=== PATIENT | male | born 1975 | race Caucasian/White ===

== ENCOUNTER 2023-01-29 20:08 | Inpatient (IN) | payer BC ==
[2023-01-29] MEDS ORDERED: HYDROMORPHONE HCL 1 MG/ML INJ ONE (22:02)
[2023-01-29] MEDS ORDERED: NA CHLORIDE 0.9% 1,000 ML ONE (22:03)
[2023-01-29] MEDS ORDERED: ACETAMINOPHEN 500 MG TAB ONE (22:38)
[2023-01-29 22:44] LABS: Absolute Lymphocytes (CBC) 1.3 K/uL (0.7-4.9); Hematocrit 40.1 % (39.6-49.0); Lymphocytes % 13.4 % (15.3-44.8); MCV 81.1 fL (80-100); MPV 8.4 fL (7.6-11.3); RBC Red Blood Cell Count 4.95 M/uL (4.33-5.43)
[2023-01-29 22:47] LABS: Albumin 3.5 g/dL (3.4-5.0); Bilirubin Total 0.5 mg/dL (0.2-1.0); Potassium 3.9 mEq/L (3.5-5.1); Protein, Total 8.3 g/dL (6.4-8.2)
--- NOTE | 2023-01-30 00:32 | EDPHYS ---
Physician Documentation [facility] Name: Alexandre Mcdermott Age: 47 yrs Sex: Male : 1975 Arrival Date: 01/29/2023 Time: 20:08 Bed 15 Private MD: ED Physician Ford Mann HPI: 01/29 21:40 This 47 yrs old Male presents to ER via Ambulatory with complaints of Abdominal Pain, cp Nausea, Dizziness, PT HAD ABD IMAGING HERE TODAY-REPORT ATTACHED. 21:40 The patient presents with abdominal pain in the lower abdomen. cp 21:40 Onset: The symptoms/episode began/occurred 3 day(s) ago. cp 21:40 The symptoms do not radiate. Associated signs and symptoms: Pertinent positives: blood cp in stools, constipation, fever, Pertinent negatives: chest pain, diarrhea, testicular pain, vomiting. The symptoms are described as constant. Severity of pain: in the emergency department the pain is actually worse moderately. 21:40 Patient reports having xray abdomen done today but unsure of results. cp Historical: - Allergies: 20:57 No Known Allergies; nj - Home Meds: 20:57 Metamucil Smooth Texture Oral [Active]; [facility] - PMHx: 20:57 None; [facility] - PSHx: 20:57 Back surgery; Appendectomy; nj - Immunization history:: Client reports receiving the 2nd dose of the Covid vaccine. - Social history:: Smoking status: Patient reports the use of cigarette tobacco products, smokes one-half pack cigarettes per day. ROS: 21:45 Constitutional: Positive for fever, Negative for poor PO intake. cp 21:45 Eyes: Negative for injury, pain, redness, and discharge. cp 21:45 ENT: Negative for drainage from ear(s), ear pain, sore throat, difficulty swallowing, difficulty handling secretions. 21:45 Cardiovascular: Negative for chest pain, edema, palpitations. 21:45 Respiratory: Negative for cough, shortness of breath, wheezing. 21:45 Abdomen/GI: Positive for abdominal pain, constipation, rectal bleeding, dark colored stools, Negative for diarrhea. 21:45 Back: Negative for pain at rest, pain with movement. 21:45 : Negative for urinary symptoms, testicular pain 21:45 Neuro: Negative for altered mental status, dizziness, headache, weakness. 21:45 All other systems are negative. Exam: 21:50 Constitutional: The patient appears in no acute distress, alert, awake, cp non-diaphoretic, non-toxic, well developed, well nourished, febrile, uncomfortable. 21:50 Head/Face: Normocephalic, atraumatic. cp 21:50 Eyes: Periorbital structures: appear normal, Conjunctiva: normal, Sclera: no appreciated abnormality, Lids and lashes: appear normal, bilaterally. 21:50 ENT: External ear(s): are unremarkable, Nose: is normal, Mouth: Lips: moist, Oral mucosa: pink and intact, moist, Posterior pharynx: is normal, airway is patent, no erythema, no exudate. 21:50 Neck: ROM/movement: is normal, is supple, without pain, no range of motions limitations, no nuchal rigidity. 21:50 Chest/axilla: Inspection: normal. 21:50 Cardiovascular: Rate: tachycardic, Rhythm: regular, Edema: is not appreciated, JVD: is not appreciated. 21:50 Respiratory: the patient does not display signs of respiratory distress, Respirations: normal, no use of accessory muscles, no retractions, labored breathing, is not present, Breath sounds: are clear throughout, no decreased breath sounds, no stridor, no wheezing. 21:50 Abdomen/GI: Inspection: abdomen appears normal, Bowel sounds: active, all quadrants, Palpation: soft, in all quadrants, moderate abdominal tenderness, in the suprapubic area, right lower quadrant and left lower quadrant, rebound tenderness, is not appreciated, voluntary guarding, is elicited in the suprapubic area, right lower quadrant and left lower quadrant. 21:50 Back: pain, that is mild, of the low back area, ROM is normal. 21:50 Skin: no rash present. 21:50 Neuro: Orientation: to person, place \T\ time. Mentation: is normal, Motor: moves all fours, strength is normal, Sensation: is normal. Vital Signs: 20:53 BP 173 / 98; Pulse 117; Resp 18; Temp 101.1(O); Pulse Ox 98% ; Weight 106.59 kg; Height nj1 5 ft. 9 in. ; Pain 6/10; 22:08 BP 175 / 89; Pulse 104; Temp 100.4; Pulse Ox 95% on R/A; aa9 20:53 Body Mass Index 34.70 (106.59 kg, 175.26 cm) nj1 20:53 Pain Scale: Adult nj1 MDM: 21:05 Patient medically screened. cp 22:00 Differential diagnosis: appendicitis, diverticulitis, non-specific abd pain, cp Pyelonephritis, Ureterolithiasis, urinary tract infection. 01/30 00:30 Data reviewed: vital signs, nurses notes. 00:30 Consideration of Admission/Observation Patient was admitted/placed on observation. Management of patient was discussed with the following: Hospitalist: Bradley Christiansen SERVICE LINE COORDINATOR will admit patient after discussion of today's results. I considered the following discharge prescriptions or medication management in the emergency department Medications were administered in the Emergency Department. See OCT. 01/29 21:28 Order name: CBC with Diff; Complete Time: 23:24 01/29 23:24 Interpretation: Normal except: SLY% 78.8; LYM% 13.4. 01/29 21:28 Order name: CMP; Complete Time: 23:24 01/29 23:24 Interpretation: Normal except: NA 135; GLUC 130; CRE 1.32; GFR 67; TP 8.3; GLOB 4.8; cp A/G 0.7. 01/29 21:28 Order name: Lipase; Complete Time: 23:24 cp 01/29 21:28 Order name: Urinalysis w/ reflexes; Complete Time: 02:16 cp 01/29 21:28 Order name: Lactate w/ 2H reflex if indic.; Complete Time: 23:24 01/29 23:25 Interpretation: Reviewed. 01/30 00:22 Order name: Blood Culture Adult (2) cp 01/30 02:20 Order name: CBC with Automated Diff EDMS 01/30 02:41 Order name: Basic Metabolic Panel EDMS 01/29 21:46 Order name: CT Abd/Pelvis - IV Contrast Only 01/29 21:28 Order name: IV Saline Lock; Complete Time: 22:08 cp 01/29 21:28 Order name: Labs collected and sent; Complete Time: 22:08 cp Administered Medications: 01/29 22:08 Drug: HYDROmorphone IVP 1 mg Route: IVP; Site: right antecubital; aa9 01/30 00:29 Follow up: Response: No adverse reaction; Pain is decreased aa9 01/29 22:08 Drug: NS 0.9% IV 1000 ml Route: IV; Rate: 1 bolus; Site: right antecubital; aa9 01/30 01:40 Follow up: Response: No adverse reaction; IV Status: Completed infusion; IV Intake: aa9 1000ml 01/29 22:45 Drug: Acetaminophen PO 1000 mg Route: PO; aa9 01/30 01:40 Follow up: Response: No adverse reaction; Temperature is decreased aa9 00:24 CANCELLED (Physician Discretion): metroNIDAZOLE IVPB 500 mg 100 ml IVPB once over 30 cp mins 01:24 Drug: NS 0.9% IV 1000 ml Route: IV; Rate: 1 bolus; Site: right antecubital; aa9 01:40 Follow up: Response: No adverse reaction; IV Status: Infusion continued upon admission; aa9 IV Intake: 200ml 01:39 Drug: NS 0.9% IV 1000 ml Route: IV; Rate: 125 ml/hr; Site: left antecubital; aa9 01:40 Follow up: Response: No adverse reaction; IV Status: Infusion continued upon admission; aa9 IV Intake: 100ml 01:39 Drug: Piperacillin-Tazobactam IVPB 3.375 grams Route: IVPB; Infused Over: 60 mins; aa9 Site: right antecubital; 01:40 Follow up: Response: No adverse reaction; IV Status: Infusion continued upon admission aa9 01:39 Drug: HYDROmorphone IVP 0.5 mg Route: IVP; Site: right antecubital; aa9 01:40 Follow up: Response: No adverse reaction; Pain is decreased aa9 Disposition: 20:23 Co-signature as Attending Physician, Ford Mann MD I agree with the assessment sp4 and plan of care. I reviewed the patient's care provided by the Advanced Practice Provider and agree with the diagnosis and treatment plan. Disposition Summary: 01/30/23 00:32 Hospitalization Ordered Hospitalization Status: Inpatient Admission cp Provider: Jet Ortega cp Condition: Stable cp Problem: new cp Symptoms: have improved cp Bed/Room Type: Standard cp Location: Telemetry/MedSurg (Inpatient)(01/30/23 14:44) bd Room Assignment: 218(01/30/23 14:44) bd Diagnosis - Diverticulitis of large intestine without perforation or abscess with bleeding cp Forms: - Medication Reconciliation Form cp - SBAR form cp Signatures: Dispatcher [employer] EDEstefanía Nugent Martha, RN RN Bradley Martin, MUSIC ORCHESTRATOR-C MUSIC ORCHESTRATOR-Cla1 Uriel Saldivar PA PA cp Avalos, Aylin, RN RN aa9 Ford Mann MD MD sp4 Gayatri Montejo RN RN nj1 Corrections: (The following items were deleted from the chart) 00:24 00:23 metroNIDAZOLE IVPB 500 mg 100 ml IVPB once over 30 mins ordered. cp cp 00: 00:32 Telemetry/MedSurg (Inpatient) cp mw : 00:32 cp mw : 00:44 [facility] ER HOLD mw bd 00:44 ERHOLD- mw bd
--- NOTE | 2023-01-30 00:32 | ER ---
Nurse's Notes [facility] Name: Alexandre Mcdermott Age: 47 yrs Sex: Male : 1975 Arrival Date: 01/29/2023 Time: 20:08 Bed 15 Private MD: Diagnosis: Diverticulitis of large intestine without perforation or abscess with bleeding Presentation: 01/29 20:53 Chief complaint: Patient states: Constipation for the last 2 days, severe abdominal nj1 pain since Saturday that has gotten worse. Nauseous, denies vomiting. Had fever today along with chills, weakness. Coronavirus screen: Vaccine status: Patient reports receiving the 2nd dose of the covid vaccine. Ebola Screen: Patient reports travel to Ebola-affected area in the 21 days before illness onset. Patient reports having traveled to: [facility]. Initial Sepsis Screen: Does the patient meet any 2 criteria? Temp <36.0*C (96.8*F)) or > 38.3*C (100.9*F). HR > 90 bpm. Yes Does the patient have a suspected source of infection? No. Patient's initial sepsis screen is negative. Risk Assessment: Do you want to hurt yourself or someone else? Patient reports no desire to harm self or others. Onset of symptoms was January 26, 2023. 20:53 Method Of Arrival: Ambulatory [facility] 20:53 Acuity: FLORES 2 nj Historical: - Allergies: 20:57 No Known Allergies; [facility] - Home Meds: 20:57 Metamucil Smooth Texture Oral [Active]; nj - PMHx: 20:57 None; [facility] - PSHx: 20:57 Back surgery; Appendectomy; nj1 - Immunization history:: Client reports receiving the 2nd dose of the Covid vaccine. - Social history:: Smoking status: Patient reports the use of cigarette tobacco products, smokes one-half pack cigarettes per day. Screenin:24 [facility] ED Fall Risk Assessment (Adult) History of falling in the last 3 months, aa9 including since admission No falls in past 3 months (0 pts) Confusion or Disorientation No (0 pts) Intoxicated or Sedated No (0 pts) Impaired Gait No (0 pts) Mobility Assist Device Used No (0 pt) Altered Elimination No (0 pt) Score/Fall Risk Level 0 - 2 = Low Risk Oriented to surroundings, Maintained a safe environment, Educated pt \T\ family on fall prevention, incl call for assistance when getting out of bed. Abuse screen: Denies threats or abuse. Denies injuries from another. Nutritional screening: Has had N/V for 3 or more days. Nutritional screening: Has had N/V for 3 or more days. Tuberculosis screening: No symptoms or risk factors identified. Assessment: 22:00 General: Appears uncomfortable, obese, Behavior is cooperative, anxious. aa9 22:00 Pain: Complains of pain in abdomen Pain currently is 8 out of 10 on a pain scale. Noted aa9 to be quiet/stoic, resistant to movement. Neuro: Level of Consciousness is awake, alert, obeys commands, Oriented to person, place, time, situation. Cardiovascular: Patient's skin is warm and dry. Respiratory: Airway is patent Respiratory effort is even, unlabored. GI: Reports constipation, nausea, Patient currently denies diarrhea. : No signs and/or symptoms were reported regarding the genitourinary system. Derm: Skin is intact, is healthy with good turgor. Vital Signs: 20:53 BP 173 / 98; Pulse 117; Resp 18; Temp 101.1(O); Pulse Ox 98% ; Weight 106.59 kg; Height nj1 5 ft. 9 in. ; Pain 6/10; 22:08 BP 175 / 89; Pulse 104; Temp 100.4; Pulse Ox 95% on R/A; aa9 20:53 Body Mass Index 34.70 (106.59 kg, 175.26 cm) nj1 20:53 Pain Scale: Adult ms1 ED Course: 20:10 Patient arrived in ED. jj6 20:57 Triage completed. nj1 20:58 Arm band placed on right wrist. nj1 21:02 Uriel Saldivar PA is PHCP. cp 21:02 Ford Mann MD is Attending Physician. cp 21:30 Yvette Donohue, [place] is Primary Nurse. aa9 22:05 Inserted saline lock: 20 gauge in right antecubital area, using aseptic technique. aa9 Blood collected. 22:08 Lactate w/ 2H reflex if indic. Sent. aa9 22:08 CBC with Diff Sent. aa9 22:08 CMP Sent. aa9 22:08 Lipase Sent. aa9 23:39 CT Abd/Pelvis - IV Contrast Only In Process Unspecified. EDMS 01/30 00:31 Ford Mann MD is Hospitalizing Provider. cp 00:31 Jet Ortega MD is Hospitalizing Provider. cp 01:39 Blood Culture Adult (2) Sent. aa9 01:41 Patient has correct armband on for positive identification. Bed in low position. Call aa9 light in reach. Side rails up X2. Pulse ox on. NIBP on. 01:41 No provider procedures requiring assistance completed. Patient admitted, IV remains in aa9 place. Administered Medications: 01/29 22:08 Drug: HYDROmorphone IVP 1 mg Route: IVP; Site: right antecubital; aa9 01/30 00:29 Follow up: Response: No adverse reaction; Pain is decreased aa9 01/29 22:08 Drug: NS 0.9% IV 1000 ml Route: IV; Rate: 1 bolus; Site: right antecubital; aa9 01/30 01:40 Follow up: Response: No adverse reaction; IV Status: Completed infusion; IV Intake: aa9 1000ml 01/29 22:45 Drug: Acetaminophen PO 1000 mg Route: PO; aa9 01/30 01:40 Follow up: Response: No adverse reaction; Temperature is decreased aa9 00:24 CANCELLED (Physician Discretion): metroNIDAZOLE IVPB 500 mg 100 ml IVPB once over 30 cp mins 01:24 Drug: NS 0.9% IV 1000 ml Route: IV; Rate: 1 bolus; Site: right antecubital; aa9 01:40 Follow up: Response: No adverse reaction; IV Status: Infusion continued upon admission; aa9 IV Intake: 200ml 01:39 Drug: NS 0.9% IV 1000 ml Route: IV; Rate: 125 ml/hr; Site: left antecubital; aa9 01:40 Follow up: Response: No adverse reaction; IV Status: Infusion continued upon admission; aa9 IV Intake: 100ml 01:39 Drug: Piperacillin-Tazobactam IVPB 3.375 grams Route: IVPB; Infused Over: 60 mins; aa9 Site: right antecubital; 01:40 Follow up: Response: No adverse reaction; IV Status: Infusion continued upon admission aa9 01:39 Drug: HYDROmorphone IVP 0.5 mg Route: IVP; Site: right antecubital; aa9 01:40 Follow up: Response: No adverse reaction; Pain is decreased aa9 Medication: 01:41 VIS not applicable for this client. aa9 Intake: 01:40 IV: 1000ml; Total: 1000ml. aa9 01:40 IV: 200ml; Total: 1200ml. aa9 01:40 IV: 100ml; Total: 1300ml. aa9 Outcome: 00:32 Decision to Hospitalize by Provider. cp 01:41 Admitted to ER Hold. Please see [facility] for further documentation. aa9 01:41 Condition: stable 01:41 Instructed on the need for admit. 15:57 Patient left the ED. iw Signatures: Dispatcher [employer] Lisa Guerra, RN RN iw Uriel Saldivar PA PA cp Jeffries, Jennifer jj6 Yvette Donohue RN RN aa9 Gayatri Montejo RN RN nj1
[2023-01-30] MEDS ORDERED: NA CHLORIDE 0.9% 100 ML ONE (00:46)
[2023-01-30] MEDS ORDERED: NA CHLORIDE 0.9% 2,000 ML ONE (00:46)
[2023-01-30] MEDS ORDERED: PIPERACIL/TAZO 3.375 GM VIAL IV ONE (00:47)
[2023-01-30] MEDS ORDERED: HYDROMORPHONE HCL 0.5 MG/0.5 ML INJ ONE ×2 (01:25→05:38)
[2023-01-30 01:26] LABS: Specific Gravity 1.019 (1.005-1.030); Urine Bacteria None Seen /HPF (<20); Urine Bilirubin NEGATIVE (Negative); Urine Blood Negative (Negative); Urine Clarity Clear (Clear); Urine Color Light-Yellow (Yellow); Urine Glucose NEGATIVE (Negative); Urine Mucus Slight /HPF (None Seen); Urine Protein TRACE (Negative); Urine RBC <5 /HPF (None Seen); Urine Urobilinogen Normal (Normal)
[2023-01-30] MEDS ORDERED: ONDANSETRON 4 MG/2 ML VIAL IV PRN (01:30)
[2023-01-30] MEDS ORDERED: HYDROMORPHONE HCL 0.5 MG/0.5 ML INJ IV PRN (01:30)
[2023-01-30] MEDS: NA CHLORIDE 0.9% 1,000 ML IV SCH ×3 (02:00→22:00)
--- NOTE | 2023-01-30 02:17 | P.HP ---
Certification for Inpatient Patient admitted to: Inpatient With expected LOS: >2 Midnights Patient will require the following post-hospital care: None Practitioner: I am a practitioner with admitting privileges, knowledge of patient current condition, hospital course, and medical plan of care. Services: Services provided to patient in accordance with Admission requirements found in Title 42 Section 412.3 of the Code of Federal Regulations <ArabellakeziaBradley Kezia Gonzalez - Last Filed: 01/30/23 02:14> Patient History Date of Service: 01/30/23 Reason for admission: Acute diverticulitis History of Present Illness: 47-year-old male with no significant past medical history presents to the emergency department with chief complaint of abdominal pain which he reports began on 01/26/2023. He called his PCP with complaints of abdominal pain/constipation and they ordered a KUB which came back showing only cholelithiasis, he was referred to the emergency department for evaluation given that he started running fever yesterday on the sixth. He was evaluated in the emergency department his labs were significant for sodium 135 creatinine 1.32 GFR [address] scan shows sigmoid diverticulitis without complicating features. Patient has moderate to severe suprapubic/left lower quadrant tenderness. Given severity of tenderness, fever ED provider wishes to admit for further evaluation and management. - Past Medical/Surgical History -: None -: Appendectomy Psychosocial/ Personal History: Patient lives at home with his - Family History Mother -: Cancer Father -: Stroke Brother Notes: Diverticulitis - Social History Smoking Status: Current every day smoker Counseled patient to stop smoking for: less than 10 minutes Alcohol use: Yes CD- Drugs: No Caffeine use: Yes Place of Residence: Home <Bradley Christiansen - Last Filed: 01/30/23 02:14> Date of Service: 01/30/23 <Jet Ortega - Last Filed: 01/30/23 21:31> Allergies No Known Allergies Allergy (Unverified 01/30/23 01:29) Review of Systems 10-point ROS is otherwise unremarkable General: Fever Gastrointestinal: Abdominal Pain, Constipation <Bradley Christiansen - Last Filed: 01/30/23 02:14> Physical Examination - Physical Exam General: Alert, In no apparent distress, Oriented x3 HEENT: Atraumatic, PERRLA, Mucous membr. moist/pink, EOMI, Sclerae nonicteric Neck: Supple, 2+ carotid pulse no bruit, No LAD, Without JVD or thyroid abnormality Respiratory: Clear to auscultation bilaterally, Normal air movement Cardiovascular: No edema, Regular rate/rhythm, Normal S1 S2 Capillary refill: <2 Seconds Gastrointestinal: Normal bowel sounds, No tenderness Musculoskeletal: No tenderness Integumentary: No rashes Neurological: Normal speech, Normal strength at 5/5 x4 extr, Normal tone, Normal affect - Studies Laboratory Data (last 24 hrs) 01/29/23 22:05: Sodium 135 L, Potassium 3.9, BUN 13, Creatinine 1.32 H, Glucose 130 H, Total Bilirubin 0.5, AST 21, ALT 49, Alkaline Phosphatase 114, Lipase 14 01/29/23 22:05: WBC 9.60, Hgb 14.2, Hct 40.1, Plt Count 235 <Bradley Christiansen - Last Filed: 01/30/23 02:14> - Studies Laboratory Data (last 24 hrs) 01/29/23 22:05: Sodium 135 L, Potassium 3.9, BUN 13, Creatinine 1.32 H, Glucose 130 H, Total Bilirubin 0.5, AST 21, ALT 49, Alkaline Phosphatase 114, Lipase 14 01/29/23 22:05: WBC 9.60, Hgb 14.2, Hct 40.1, Plt Count 235 <Jet Ortega - Last Filed: 01/30/23 21:31> Assessment and Plan - Plan Assessment: Sepsis secondary to acute sigmoid diverticulitis Plan: Sepsis secondary to acute sigmoid diverticulitis SIRS criteria present including tachycardia, fever, source of infection with acute sigmoid diverticulitis. Patient denies previous episodes of diverticulitis that he is aware of. Last colonoscopy 2018 showed some polyps. He has moderate to severe tenderness at this time, n.p.o., IV fluids, IV antibiotics. Surgical consultation. Discussed outpatient colonoscopy in 6 to 8 weeks. DVT PPX: Lovenox Code status: Full Discharge Plan: Home Plan to discharge in: 48 Hours - Advance Directives Does patient have a Living Will: No Does patient have a Durable POA for Healthcare: No - Code Status/Comfort Care Code Status Assessed: Yes (Full code) Critical Care: No Time Spent Managing Pts Care (In Minutes): 55 <Bradley Christiansen - Last Filed: 01/30/23 02:14> - Plan Patient seen on rounds this afternoon. Slight improvement No new symptoms / no worsening bowel rest, IVF pain meds PRN <Jet Ortega - Last Filed: 01/30/23 21:31>
[2023-01-30 02:18] LABS: Absolute Lymphocytes (CBC) 1.6 K/uL (0.7-4.9); Hematocrit 38.5 % (39.6-49.0); Lymphocytes % 18.3 % (15.3-44.8); MCV 81.5 fL (80-100); MPV 7.9 fL (7.6-11.3); RBC Red Blood Cell Count 4.72 M/uL (4.33-5.43)
[2023-01-30 02:41] LABS: Potassium 3.9 mEq/L (3.5-5.1)
[2023-01-30 03:43] VITALS: BMI 34.4
[2023-01-30] MEDS ORDERED: ONDANSETRON 4 MG/2 ML VIAL ONE (05:38)
[2023-01-30] MEDS ORDERED: ACETAMINOPHEN 500 MG TAB ONE (05:54)
[2023-01-30] MEDS ORDERED: KCL 20 MEQ/100 mL IVPB 20 MEQ/100 ML BAG IV SCH (08:00)
[2023-01-30] MEDS ORDERED: HYDROMORPHONE HCL 1 MG/ML INJ ONE ×2 (08:13→12:41)
[2023-01-30] MEDS ORDERED: CIPROFLOXACIN 400mg IV 400 MG/200 ML BAG IV ONE (08:14)
[2023-01-30] MEDS ORDERED: KCL 20 MEQ/100 mL IVPB 100 ML IV ONE (08:14)
[2023-01-30] MEDS ORDERED: METRONIDAZOLE 500mg IVPB 500 MG/100 ML BAG IV ONE (08:14)
[2023-01-30] MEDS: METRONIDAZOLE 500mg IVPB 500 MG/100 ML BAG IV SCH ×2 (08:18→16:31)
[2023-01-30] MEDS: CIPROFLOXACIN 400mg IV 400 MG/200 ML BAG IV SCH ×2 (08:18→20:48)
[2023-01-30] MEDS: HYDROMORPHONE HCL 1 MG/ML INJ IV PRN ×4 (08:19→20:43)
[2023-01-30] MEDS: ENOXAPARIN 40 MG/0.4 ML SQ SCH (08:19)
--- NOTE | 2023-01-30 11:21 | RAD REPORT ---
EXAM DESCRIPTION: CT of the abdomen and pelvis CLINICAL HISTORY: ABD PAIN. COMPARISON: None. TECHNIQUE: CT of the abdomen and pelvis was performed following intravenous administration of iodina [place] contrast. Oral contrast was not administered. Axial, coronal, and sagittal soft tissue window rec onstructions were created and sent to PACS. This exam was performed according to our departmental dose-optimization program, which includes autom ated exposure control, adjustment of the mA and/or kV according to patient size and/or use of iterati ve reconstruction technique. FINDINGS: Thoracic: No significant abnormality. Hepatobiliary: No concerning hepatic lesion identified. The portal veins are patent. Calcified gallst ones in the gallbladder. No gallbladder wall thickening or surrounding inflammatory changes. No bilia ry ductal dilatation. Pancreas: Unremarkable. Spleen: Unremarkable. Gastrointestinal: There is an inflamed diverticulum of the proximal to mid sigmoid colon with wall th ickening region and mild adjacent fat stranding. No free air or fluid collections. No evidence of bow el obstruction. The appendix is surgically absent. Small amount of fecal material throughout the colo n and rectum. Adrenals: No abnormality identified in either adrenal gland. Renal: No concerning parenchymal abnormality in either kidney. No hydronephrosis or urolithiasis. Bladder/Reproductive: Mild wall thickening of the urinary bladder adjacent to the inflamed sigmoid co chris. A fat plane is maintained. No gas within the wall or lumen. Vascular/Lymphatics: Mildly prominent mesenteric lymph nodes. Abdominal aorta is normal in caliber. M ild calcific atherosclerosis. Musculoskeletal: No concerning osseous lesion identified. Fluid / peritoneum: No significant free fluid. No free intraperitoneal air identified. IMPRESSION 1. Acute sigmoid diverticulitis. 2. Adjacent mild wall thickening of the urinary bladder, likely reactive. No evidence of fistula at this time. Electronically signed by: Mary Lou Cloud MD 01/29/2023 11:55 PM CDT Due to temporary technical issues with the PACS/Fluency reporting system, reports are being signed by the in house radiologist without review as a courtesy to ensure prompt reporting. The interpreting r adiologist is fully responsible for the content of the report.
[2023-01-30] MEDS ORDERED: ACETAMINOPHEN 325 MG TABLET PO PRN (12:28)
[2023-01-30] MEDS ORDERED: NA CHLORIDE 0.9% 1,000 ML ONE (12:41)
--- NOTE | 2023-01-30 13:35 | CON ---
Date of Consultation: 01/30/2023 Reason For Service: Diverticulitis. History Of Present Illness: This is the case of a 47-year-old patient, who comes to us with a month of abdominal pain, but in the last day, it got worse, specifically in the left lower side associated with constipation. He was referred to the ER due to increased abdominal pain and found to have a sig moid diverticulitis, and a surgical consult was obtained. Other than constipation, he does not recal l any other problems. No previous colonoscopy. Past Medical History: Appendectomy. Family History: Includes stroke and diverticulitis. Social History: He is currently smoker. He was advised and counseled the importance of cessation. He does not drink alcohol. Review of Systems: Nausea, bloating, left lower quadrant abdominal pain, constipation. He stated that his hemorrhoids a re flaring up after this constipation. Physical Examination: General: The patient is awake, alert. HEENT: Pupils are equal and reactive. Anicteric. Neck: Supple. Chest: Clear. Heart: S1, S2. Abdomen: Left lower quadrant tenderness with guarding. No rebound. Rectal: Deferred, although the patient has some hemorrhoid tissue tender in that area. Extremities: Good capillary refill. Laboratory Data: Blood work shows a WBC count of 8.7, hemoglobin of 13.3, platelets of 212. Potassi um 3.9, creatinine is 13. CAT scan of the abdomen and pelvis interpreted by Dr. Nails as acute sigmoi d diverticulitis, adjacent mid wall thickening of the urinary bladder likely reactive. No evidence o f fistula at this time. Assessment: This is a 47-year-old patient with acute diverticulitis. The patient explained that dur ing this admission if he perforates, then we may have to do an emergent laparotomy, possible bowel re section with an ostomy with benefits, alternatives, and risks including, but not limited to infection , bleeding, damage to adjacent structures, anesthesia complication, [place], and even . He also unde rstands it may or may not be reversible. He also understands that if he gets better from this condit ion, he should have his colonoscopy done and then once again prove that this is just due to diverticu litis and not any other malignancy or neoplasm and then also if this becomes a frequent, we may have to consider him elective bowel resection. He understands that. He understands the importance of fol lowing up with the doctor's recommendations at this time with antibiotics and bowel rest. JERSEY/MARTA Voice ID: [id number] Report ID: [id number]
[2023-01-31] MEDS: HYDROMORPHONE HCL 1 MG/ML INJ IV PRN ×6 (00:46→22:02)
[2023-01-31] MEDS: METRONIDAZOLE 500mg IVPB 500 MG/100 ML BAG IV SCH ×3 (00:51→16:30)
[2023-01-31] MEDS: NA CHLORIDE 0.9% 1,000 ML IV SCH ×3 (03:44→14:23)
[2023-01-31 03:48] LABS: Absolute Lymphocytes (CBC) 1.4 K/uL (0.7-4.9); Hematocrit 35.5 % (39.6-49.0); Lymphocytes % 16.9 % (15.3-44.8); MCV 80.9 fL (80-100); MPV 8.2 fL (7.6-11.3); RBC Red Blood Cell Count 4.38 M/uL (4.33-5.43)
[2023-01-31 03:56] LABS: Potassium 3.6 mEq/L (3.5-5.1)
--- NOTE | 2023-01-31 07:00 | P.PN ---
Date of Service: 01/31/23 Subjective: Feeling better today (~50% better), hungry some pain after BM (new, bloating/gas pain) still needing frequent pain medication slight discomfort with urination yesterday, better today afebrile ROS: 10 point ROS as noted above, otherwise negative Physical Exam: GEN: Alert, oriented, slight uncomfortable appearing HEENT: Normal conjunctiva, sclera anicteric CV: Regular rate and rhythm, no edema Pulm: Nonlabored respirations on room air ABD: Soft, diffuse tenderness, worse in LLQ, nondistended Neuro: Normal speech, normal affect vitals reviewed Problem List: Sepsis secondary to acute sigmoid diverticulitis SIRS criteria present including tachycardia, fever, source of infection with acute sigmoid diverticulitis. Patient denies previous episodes of diverticulitis that he is aware of. Last colonoscopy 2017 showed some polyps. advance to clears for dinner advised can try slight increase oral intake, back off if any worse pain/nausea; avoid a lot of intake monitor if tolerable IVF Continue ciprofloxacin/flagyl (01/30-) General surgery consulted - Discussed outpatient colonoscopy in 6 to 8 weeks. VTE: Lovenox Code: Full Dispo: Home ~2 days
[2023-01-31] MEDS: CIPROFLOXACIN 400mg IV 400 MG/200 ML BAG IV SCH ×2 (08:13→20:28)
[2023-01-31] MEDS: ENOXAPARIN 40 MG/0.4 ML SQ SCH (08:14)
[2023-01-31] MEDS ORDERED: POTASSIUM CL SA 10 MEQ TAB PO ONE (09:00)
[2023-01-31 23:33] VITALS: O2SAT 96
[2023-02-01] MEDS: METRONIDAZOLE 500mg IVPB 500 MG/100 ML BAG IV SCH ×3 (01:09→15:57)
[2023-02-01 03:43] LABS: Absolute Lymphocytes (CBC) 1.3 K/uL (0.7-4.9); Hematocrit 37.3 % (39.6-49.0); Lymphocytes % 17.6 % (15.3-44.8); MCV 80.4 fL (80-100); RBC Red Blood Cell Count 4.64 M/uL (4.33-5.43)
[2023-02-01 03:50] LABS: Potassium 3.9 mEq/L (3.5-5.1)
[2023-02-01] MEDS: NA CHLORIDE 0.9% 1,000 ML IV SCH ×2 (05:26→15:53)
[2023-02-01] MEDS: HYDROMORPHONE HCL 1 MG/ML INJ IV PRN ×4 (05:27→20:46)
--- NOTE | 2023-02-01 07:07 | P.PN ---
Date of Service: 02/01/23 Subjective: Feeling better today eating more today; feels bloated ~30 min after eating lower abdominal pain almost gone completely, now just feels gassy/bloated nausea slightly improved no worsening problems still requiring pain medications ROS: 10 point ROS as noted above, otherwise negative Physical Exam: GEN: Alert, oriented, slight uncomfortable appearing HEENT: Normal conjunctiva, sclera anicteric CV: Regular rate and rhythm, no edema Pulm: Nonlabored respirations on room air ABD: Soft, mild diffuse tenderness, worse in LLQ, nondistended Neuro: Normal speech, normal affect vitals reviewed Problem List: Sepsis secondary to acute sigmoid diverticulitis SIRS criteria present including tachycardia, fever, source of infection with acute sigmoid diverticulitis. Patient denies previous episodes of diverticulitis that he is aware of. Last colonoscopy 2017 showed some polyps. advance to clears for dinner 01/31 advance to full liquids for dinner 02/01 dc IVF 02/01 evening Continue ciprofloxacin/flagyl (01/30-) General surgery consulted - Discussed outpatient colonoscopy in 6 to 8 weeks. VTE: Lovenox Code: Full Dispo: Home ~1-2 days
[2023-02-01] MEDS ORDERED: POTASSIUM 25 MEQ EFFERV TAB PO ONE (08:00)
[2023-02-01] MEDS: CIPROFLOXACIN 400mg IV 400 MG/200 ML BAG IV SCH ×2 (09:43→20:46)
[2023-02-01] MEDS: ENOXAPARIN 40 MG/0.4 ML SQ SCH (09:43)
[2023-02-01] MEDS ORDERED: HYDROMORPHONE HCL 0.5 MG/0.5 ML INJ IV PRN (23:37)
[2023-02-02] MEDS: METRONIDAZOLE 500mg IVPB 500 MG/100 ML BAG IV SCH ×2 (00:51→07:45)
[2023-02-02] MEDS: HYDROCODONE/APAP 5/325 MG TAB PO PRN ×2 (03:32→08:43)
[2023-02-02 04:02] LABS: Albumin 2.8 g/dL (3.4-5.0); Bilirubin Total 0.4 mg/dL (0.2-1.0); Potassium 3.8 mEq/L (3.5-5.1); Protein, Total 6.9 g/dL (6.4-8.2)
--- NOTE | 2023-02-02 07:06 | P.PN ---
Date of Service: 02/02/23 Subjective: remains bloated/gassy; slightly worse no BM since yesterday woke up nauseated, tolerating PO intake but doesn't like food here still requiring pain medication ROS: 10 point ROS as noted above, otherwise negative Physical Exam: GEN: Alert, oriented, slight uncomfortable appearing HEENT: Normal conjunctiva, sclera anicteric CV: Regular rate and rhythm, no edema Pulm: Nonlabored respirations on room air ABD: Soft, mild diffuse tenderness, worse in LLQ, nondistended Neuro: Normal speech, normal affect vitals reviewed Problem List: Sepsis secondary to acute sigmoid diverticulitis SIRS criteria present including tachycardia, fever, source of infection with acute sigmoid diverticulitis. Patient denies previous episodes of diverticulitis that he is aware of. Last colonoscopy 2017 showed some polyps. advance to clears for dinner 01/31 advance to full liquids for dinner 02/01 dc IVF 02/01 evening Continue ciprofloxacin/flagyl (01/30-) General surgery consulted - Discussed outpatient colonoscopy in 6 to 8 weeks. switched to PO medication, wean as tolerated VTE: Lovenox Code: Full Dispo: Home ~1-2 days
[2023-02-02] MEDS: CIPROFLOXACIN 400mg IV 400 MG/200 ML BAG IV SCH (07:44)
[2023-02-02] MEDS: ENOXAPARIN 40 MG/0.4 ML SQ SCH (07:45)
[2023-02-02] MEDS ORDERED: POTASSIUM CL SA 10 MEQ TAB PO ONE (09:00)
[2023-02-02 09:03] VITALS: TEMP 97
[2023-02-02 13:08] VITALS: BP 132/77
--- NOTE | 2023-02-02 13:54 | P.DS ---
Admission Date: 01/30/23 Discharge Date: 02/02/23 Disposition: ROUTINE DISCHARGE Discharge Condition: GOOD Reason for Admission: Acute diverticulitis Consultations: General Surgery - Dr. Roblero Brief History of Present Illness: 47yo M, with no significant PMH. Presented to ED with abdominal pain and fever. Found to have sigmoid diverticulitis on CT scan. Hospital Course: Problem List: Sepsis secondary to acute sigmoid diverticulitis Patient presented with nausea and abdominal pain found to have acute sigmoid diverticulitis on CT scan. General Surgery, Dr. Roblero, was consulted. No indication/need for surgery at this time, continue medical therapy. Patient will need to follow up with GI to have an outpatient colonoscopy in 6-8 weeks. Patient had gradual/daily improvement of symptoms, his diet was advanced to full liquids which she tolerated well. Received ciprofloxacin and Flagyl. He is to finish 2 week course of PO ciprofloxacin/flagyl Patient should remain on a full liquid diet / soft diet until seen by Dr. Roblero. Can advance to soft/low fiber at that time. Avoid laxatives / high fiber foods/drinks during the next 2 weeks. New Prescription: ciprofloxacin 500 mg twice a day for 2 weeks flagyl 500 mg every 8 hours for 2 weeks Holder as needed for pain Follow up: PCP 3-[address] Roblero in ~1-2 weeks GI within 6-8 weeks for out patient colonoscopy Physical Exam: GEN: Alert, oriented, NAD HEENT: Normal conjunctiva, sclera anicteric CV: Regular rate and rhythm, no edema Pulm: Nonlabored respirations on room air ABD: Soft, minimal tenderness in LLQ Neuro: Normal speech, normal affect Vital Signs/Physical Exam: Temp Pulse Resp BP Pulse Ox 97.0 F 79 18 132/77 97 02/02/23 12:00 02/02/23 12:00 02/02/23 12:00 02/02/23 12:00 02/02/23 12:00 Laboratory Data at Discharge: WBC 7.60 thou/uL (4.3-10.9) 02/01/23 03:16 Hgb 12.9 g/dL (13.6-17.9) L 02/01/23 03:16 Hct 37.3 % (39.6-49.0) L 02/01/23 03:16 Plt Count 221 thou/uL (152-406) 02/01/23 03:16 Sodium 137 mEq/L (136-145) 02/02/23 03:24 Potassium 3.8 mEq/L (3.5-5.1) 02/02/23 03:24 BUN 8 mg/dL (7-18) 02/02/23 03:24 Creatinine 1.13 mg/dL (0.70-1.30) 02/02/23 03:24 Glucose 110 mg/dL (74-106) H 02/02/23 03:24 Total Bilirubin 0.4 mg/dL (0.2-1.0) 02/02/23 03:24 AST 30 U/L (15-37) 02/02/23 03:24 ALT 53 U/L (16-61) 02/02/23 03:24 Alkaline Phosphatase 91 U/L (45-117) 02/02/23 03:24 Lipase 14 U/L (13-75) 01/29/23 22:05 Home Medications: Loratadine/Pseudoephedrine [Claritin-D 24 Hour Tablet] 1 tab PO DAILY 01/30/23 Ciprofloxacin HCl 500 mg PO BID 10 Days #20 tab 02/02/23 Hydrocodone 5/APAP 325 [Holder 5/325] 1 tab PO Q8H PRN #15 tab 02/02/23 metroNIDAZOLE [Metronidazole] 500 mg PO Q8H 10 Days #30 tab 02/02/23 New Medications: Ciprofloxacin HCl 500 mg PO BID 10 Days #20 tab metroNIDAZOLE [Metronidazole] 500 mg PO Q8H 10 Days #30 tab Hydrocodone 5/APAP 325 [Holder 5/325] 1 tab PO Q8H PRN #15 tab PRN Reason: Pain Physician Discharge Instructions: Patient presented with nausea and abdominal pain found to have acute sigmoid diverticulitis on CT scan. General Surgery, Dr. Roblero, was consulted. No indication/need for surgery at this time, continue medical therapy. Patient will need to follow up with GI to have an outpatient colonoscopy in 6-8 weeks. Patient had gradual/daily improvement of symptoms, his diet was advanced to full liquids which she tolerated well. Received ciprofloxacin and Flagyl. He is to finish 2 week course of PO ciprofloxacin/flagyl Patient should remain on a full liquid diet / soft diet until seen by Dr. Roblero. Can advance to soft/low fiber at that time. Avoid laxatives / high fiber foods/drinks during the next 2 weeks. New Prescription: ciprofloxacin 500 mg twice a day for 2 weeks flagyl 500 mg every 8 hours for 2 weeks Holder as needed for pain Follow up: PCP 3-[address] Roblero in ~1-2 weeks GI within 6-8 weeks for out patient colonoscopy Followup: JuanD iego Roblero MD [ACTIVE - CAN ADMIT] - 1-2 Weeks (call to schedule an appointment.) Time spent managing pt's care (in minutes): 45
== END 2023-02-02 14:56 | disposition home or self-care (01) | DRG 872 ==
LOC: ER 20:08 → ERHOLD 01-30 01:19 → 2ND 01-30 15:11
PROVIDERS: ADMIT Hospitalist; ATTEND Hospitalist
DX: A41.9 Sepsis, unspecified organism (principal); K57.32 Diverticulitis of large intestine without perforation or abscess without bleeding; K59.00 Constipation, unspecified; F17.210 Nicotine dependence, cigarettes, uncomplicated; Z90.49 Acquired absence of other specified parts of digestive tract
CPT/HCPCS: 36415; 74177; 80048; 80053; 81001; 83605; 83690; 85025; 87040; 96361; 96374; 96375; 99285; J0744; J1170; J1650; J2405; J2543; J3480; J7030; Q9967

== ENCOUNTER 2024-03-04 19:42 | Emergency (ER) | payer BC ==
[2024-03-04] MEDS ORDERED: ONDANSETRON 4 MG (ODT) TAB ONE (20:57)
[2024-03-04] MEDS ORDERED: TRAMADOL HCL 50 MG TAB ONE (20:57)
--- NOTE | 2024-03-04 21:23 | RAD REPORT ---
EXAM DESCRIPTION: CT - CTHCSPWOC - 03/04/2024 9:11 pm CLINICAL HISTORY: Trauma, head and neck injury. concussion, head injury COMPARISON: No comparisons TECHNIQUE: Axial 5 mm thick images of the head were obtained. Axial 2 mm thick images of the cervical spine were obtained with sagittal and coronal reconstruction images generated and reviewed. All CT scans are performed using dose optimization technique as appropriate and may include automated exposure control or mA/KV adjustment according to patient size. FINDINGS: CT HEAD WITHOUT CONTRAST: No acute hemorrhage, hydrocephalus or extra-axial collection is identified.No areas of brain edema or midline shift. The paranasal sinuses and mastoids are clear.The calvarium is intact. CT CERVICAL SPINE WITHOUT CONTRAST: No fracture or subluxation.No prevertebral soft tissues swelling is identified. Mild multilevel cervi pierce spondylosis with varying degrees of neural foraminal narrowing. No high-grade central spinal sten osis. IMPRESSION: No acute intracranial or cervical spine findings.
--- NOTE | 2024-03-04 21:28 | ER ---
Nurse's Notes [facility] Name: Alexandre Mcdermott Age: 49 yrs Sex: Male : 1975 Arrival Date: 03/04/2024 Time: 19:42 Bed DX3 Private MD: Diagnosis: Concussion without loss of consciousness Presentation: 03/04 20:14 Chief complaint: Patient states: Pt states he was struck in the right side of head by a tl4 falling tree branch last night at approx 1700. Pt denies LOC. Pt c/o ongoing head pain, neck pain, and dizziness. Coronavirus screen: At this time, the client does not indicate any symptoms associated with coronavirus-19. Ebola Screen: No symptoms or risks identified at this time. Mechanism of Injury: resulted from a direct blow, tree. Initial Sepsis Screen: Does the patient meet any 2 criteria? No. Patient's initial sepsis screen is negative. Does the patient have a suspected source of infection? No. Patient's initial sepsis screen is negative. Risk Assessment: Do you want to hurt yourself or someone else? Patient reports no desire to harm self or others. Onset of symptoms was March 03, 2024. 20:14 Method Of Arrival: Ambulatory tl4 20:14 Acuity: FLORES 3 tl4 Triage Assessment: 20:19 General: Appears uncomfortable, Behavior is calm, cooperative. Pain: Complains of pain tl4 in face, scalp and neck. EENT: No signs and/or symptoms were reported regarding the EENT system. Neuro: Level of Consciousness is awake, alert, obeys commands, Oriented to person, place, time, situation, Moves all extremities. Full function Gait is steady, Speech is normal, Facial symmetry appears normal, Reports dizziness, headache. Cardiovascular: Capillary refill < 3 seconds Patient's skin is warm and dry. Respiratory: Airway is patent Respiratory effort is even, unlabored, Respiratory pattern is regular, symmetrical. GI: No signs and/or symptoms were reported involving the gastrointestinal system. : No signs and/or symptoms were reported regarding the genitourinary system. Derm: No signs and/or symptoms reported regarding the dermatologic system. Musculoskeletal: Reports pain in neck. Historical: - Allergies: 20:18 No Known Allergies; tl4 - Home Meds: 20:18 tadalafil oral [Active]; tl4 - PSHx: 20:18 Appendectomy; back surgery; tl4 20:19 Colon removal surgery; tl4 - Immunization history:: Adult Immunizations unknown. - Infectious Disease History:: Denies. - Social history:: Smoking status: Patient/guardian denies using tobacco, the patient reports quitting approximately 1 years ago. - Family history:: not pertinent. Screenin:[facility] ED Fall Risk Assessment (Adult) History of falling in the last 3 months, vc1 including since admission No falls in past 3 months (0 pts) Confusion or Disorientation No (0 pts) Intoxicated or Sedated No (0 pts) Impaired Gait No (0 pts) Mobility Assist Device Used No (0 pt) Altered Elimination No (0 pt) Score/Fall Risk Level 0 - 2 = Low Risk Oriented to surroundings, Maintained a safe environment, Educated pt \T\ family on fall prevention, incl call for assistance when getting out of bed. Abuse screen: Denies threats or abuse. Nutritional screening: No deficits noted. Tuberculosis screening: No symptoms or risk factors identified. Assessment: 22:08 Reassessment: Patient appears in no apparent distress at this time. Patient and/or bm8 family updated on plan of care and expected duration. Pain level reassessed. Patient is alert, oriented x 3, equal unlabored respirations, skin warm/dry/pink. General: Appears in no apparent distress. comfortable, Behavior is calm, cooperative, appropriate for age. Pain: Complains of pain in back Pain currently is 2 out of 10 on a pain scale. Vital Signs: 20:14 BP 156 / 71; Pulse 77; Resp 18; Temp 97.3; Pulse Ox 99% ; Weight 111.58 kg; Height 5 tl4 ft. 10 in. ; Pain 4/10; 22:12 BP 133 / 76; Pulse 59; Resp 16; Temp 97.6; Pulse Ox 97% ; Pain 2/10; bm8 20:14 Body Mass Index 35.30 (111.58 kg, 177.8 cm) tl4 20:14 Pain Scale: Adult tl4 22:12 Pain Scale: Adult bm8 Fabrizio Coma Score: 20:14 Eye Response: spontaneous(4). Motor Response: obeys commands(6). Verbal Response: tl4 oriented(5). Total: 15. 22:12 Eye Response: spontaneous(4). Motor Response: obeys commands(6). Verbal Response: bm8 oriented(5). Total: 15. 03/05 07:30 Eye Response: spontaneous(4). Motor Response: obeys commands(6). Verbal Response: sp4 oriented(5). Total: 15. 07:30 Eye Response: spontaneous(4). Motor Response: obeys commands(6). Verbal Response: sp4 oriented(5). Total: 15. ED Course: 03/04 19:44 Patient arrived in ED. rg4 20:09 Ford Mann MD is Attending Physician. sp4 20:18 Triage completed. tl4 20:20 Arm band placed on right wrist. tl4 21:13 CT Head C Spine In Process Unspecified. EDMS 21:45 Hai Cantrell, RN is Primary Nurse. bm8 21:49 No provider procedures requiring assistance completed. Patient did not have IV access vc1 during this emergency room visit. 22:12 Patient has correct armband on for positive identification. Provided Education on: post bm8 er care. Verbal reassurance given. Administered Medications: 21:10 Drug: traMADol PO 100 mg PO once Route: PO; vc1 22:13 Follow up: Response: No adverse reaction bm8 21:10 Drug: Ondansetron PO 4 mg PO once Route: PO; vc1 22:12 Follow up: Response: No adverse reaction bm8 Medication: 21:50 VIS not applicable for this client. vc1 Outcome: 21:27 Discharge ordered by MD. sp4 21:49 Discharged to home ambulatory, vc1 21:49 Condition: good 21:49 Discharge instructions given to patient, Instructed on discharge instructions, follow up and referral plans. Demonstrated understanding of instructions, follow-up care, 21:51 Instructed on medication usage, Demonstrated understanding of medications, vc1 Prescriptions given X 1, 21:51 Patient left the ED. vc1 Signatures: Dispatcher [employer] EDMS Alma Jara rg4 Samanta Herrera RN RN vc1 Ford Mann MD MD sp4 Cleveland Munguia RN RN tl4 Hai Cantrell, RN RN bm8 Corrections: (The following items were deleted from the chart) 20:19 20:18 PSHx: Colon removal (back surgery); tl4 tl4
--- NOTE | 2024-03-04 21:28 | EDPHYS ---
Physician Documentation [facility] Name: Alexandre Mcdermott Age: 49 yrs Sex: Male : 1975 Arrival Date: 03/04/2024 Time: 19:42 Bed DX3 Private MD: ED Physician Ford Mann HPI: 03/04 20:09 This 49 yrs old Male presents to ER via Unassigned with complaints of Head sp4 Injury-Adult, Dizziness. 03/05 07:30 49-year-old male presents with complaint of dizziness and head injury yesterday at 4 PM sp4 via tree trunk. Patient has denied LOC.. Historical: - Allergies: 03/04 20:18 No Known Allergies; tl4 - Home Meds: 20:18 tadalafil oral [Active]; tl4 - PSHx: 20:18 Appendectomy; back surgery; tl4 20:19 Colon removal surgery; tl4 - Immunization history:: Adult Immunizations unknown. - Infectious Disease History:: Denies. - Social history:: Smoking status: Patient/guardian denies using tobacco, the patient reports quitting approximately 1 years ago. - Family history:: not pertinent. ROS: 03/05 07:30 Constitutional: Negative for fever, chills, and weight loss, positive head injury, sp4 positive headache, positive dizziness, positive nausea All other systems are negative, Exam: 07:30 Constitutional: This is a well developed, well nourished patient who is awake, alert, sp4 and in no acute distress. Head/Face: Normocephalic, atraumatic. Eyes: Pupils equal round and reactive to light, extra-ocular motions intact. Lids and lashes normal. Conjunctiva and sclera are not injected. Cornea within normal limits. Periorbital areas with no swelling, redness, or edema. ENT: Nares patent. No nasal discharge, no septal abnormalities noted. Tympanic membranes are normal and external auditory canals are clear. Oropharynx with no redness, swelling, or masses, exudates, or evidence of obstruction, uvula midline. Mucous membranes moist. Neck: Trachea midline, no thyromegaly or masses palpated, and no cervical lymphadenopathy. Supple, full range of motion without nuchal rigidity, or vertebral point tenderness. Chest/axilla: Normal chest wall appearance and motion. Nontender with no deformity. No lesions are appreciated. Cardiovascular: Regular rate and rhythm with a normal S1 and S2. No gallops, murmurs, or rubs. Normal PMI, no JVD. No pulse deficits. Respiratory: Lungs have equal breath sounds bilaterally, clear to auscultation and percussion. No rales, rhonchi or wheezes noted. No increased work of breathing, no retractions or nasal flaring. Abdomen/GI: Soft, with normal bowel sounds. No distension or tympany. No guarding or rebound. No evidence of tenderness throughout. Back: No spinal tenderness. No costovertebral tenderness. Skin: Warm, dry with normal turgor. Normal color with no rashes, no lesions, and no evidence of cellulitis. MS/ Extremity: Pulses equal, no cyanosis. Neurovascular intact. Full, normal range of motion. Neuro: Awake and alert, GCS 15, oriented to person, place, time, and situation. Cranial nerves II-XII grossly intact. Motor strength 5/5 in all extremities. Sensory grossly intact. Psych: Awake, alert, with orientation to person, place and time. Behavior, mood, and affect are within normal limits Vital Signs: 03/04 20:14 BP 156 / 71; Pulse 77; Resp 18; Temp 97.3; Pulse Ox 99% ; Weight 111.58 kg; Height 5 tl4 ft. 10 in. ; Pain 4/10; 22:12 BP 133 / 76; Pulse 59; Resp 16; Temp 97.6; Pulse Ox 97% ; Pain 2/10; bm8 20:14 Body Mass Index 35.30 (111.58 kg, 177.8 cm) tl4 20:14 Pain Scale: Adult tl4 22:12 Pain Scale: Adult bm8 Fabrizio Coma Score: 20:14 Eye Response: spontaneous(4). Motor Response: obeys commands(6). Verbal Response: tl4 oriented(5). Total: 15. 22:12 Eye Response: spontaneous(4). Motor Response: obeys commands(6). Verbal Response: bm8 oriented(5). Total: . 03/05 07:30 Eye Response: spontaneous(4). Motor Response: obeys commands(6). Verbal Response: sp4 oriented(5). Total: 15. 07:30 Eye Response: spontaneous(4). Motor Response: obeys commands(6). Verbal Response: sp4 oriented(5). Total: 15. MDM: 03/04 20:17 Patient medically screened. sp4 03/05 07:30 Differential diagnosis: Contusion of Hematoma on Intracranial bleed- Concussion sp4 cerebral contusion. Data reviewed: vital signs, nurses notes, radiologic studies, CT scan. ED course: CT head is negative. Patient stable for discharge home. EXAM DESCRIPTION: CT - CTHCSPWOC - 03/04/2024 9:11 pm CLINICAL HISTORY: Trauma, head and neck injury. concussion, head injury COMPARISON: No comparisons TECHNIQUE: Axial 5 mm thick images of the head were obtained. Axial 2 mm thick images of the cervical spine were obtained with sagittal and coronal reconstruction images generated and reviewed. All CT scans are performed using dose optimization technique as appropriate and may include automated exposure control or mA/KV adjustment according to patient size. FINDINGS: CT HEAD WITHOUT CONTRAST: No acute hemorrhage, hydrocephalus or extra-axial collection is identified.No areas of brain edema or midline shift. The paranasal sinuses and mastoids are clear.The calvarium is intact. CT CERVICAL SPINE WITHOUT CONTRAST: No fracture or subluxation.No prevertebral soft tissues swelling is identified. Mild multilevel cervical spondylosis with varying degrees of neural foraminal narrowing. No high-grade central s yfn stenosis. IMPRESSION: No acute intracranial or cervical spine findings. . 03/04 20:17 Order name: CT Head C Spine; Complete Time: 21:25 sp4 Administered Medications: 03/04 21:10 Drug: traMADol PO 100 mg PO once Route: PO; vc1 22:13 Follow up: Response: No adverse reaction bm8 21:10 Drug: Ondansetron PO 4 mg PO once Route: PO; vc1 22:12 Follow up: Response: No adverse reaction bm8 Disposition Summary: 03/04/24 21:27 Discharge Ordered Notes: Location: Home sp4 Problem: new sp4 Symptoms: have improved sp4 Condition: Stable sp4 Diagnosis - Concussion without loss of consciousness sp4 Followup: sp4 - With: Private Physician - When: As needed - Reason: Recheck today's complaints Discharge Instructions: - Discharge Summary Sheet sp4 - Concussion, Adult, [id number] sp4 Forms: - Patient Portal Instructions sp4 Prescriptions: - methocarbamol 750 mg Oral tablet - take 2 tablets ORAL route every 8 hours for 3 days PRN muscle soreness; 60 sp4 tablet; Refills: 0, Product Selection Permitted Signatures: Dispatcher [employer] Samanta Harvey RN RN vc1 Ford Mann MD MD sp4 Cleveland Munguia RN RN tl4 Hai Cantrell RN bm8 Corrections: (The following items were deleted from the chart) 20:19 20:18 PSHx: Colon removal (back surgery); tl4 tl4
[2024-03-05 03:13] VITALS: BP 156/71; TEMP 97.3; O2SAT 99
== END 2024-03-04 21:51 | disposition home or self-care (01) ==
LOC: ER 19:42
DX: S06.0X0A Concussion without loss of consciousness, initial encounter (principal)
CPT/HCPCS: 70450; 72125; 99283; Q0162